=== PATIENT | male | born 1970 | race African-American/Black ===

== ENCOUNTER → 2021-09-20 | Emergency (ER) | payer OTHER ==
[2021-09-20 15:45] VITALS: BP 138/65; PULSE 65; TEMP 97.9; BMI 20.5
== END ==
LOC: JERFT 14:48
DX: K08.89 Other specified disorders of teeth and supporting structures (principal)
CPT/HCPCS: 99281-25

== ENCOUNTER 2023-08-14 12:55 | Emergency (ER) | payer OTHER ==
[2023-08-14 13:22] VITALS: BP 104/73; PULSE 68; RESP 18; TEMP 98; BMI 21.2
[2023-08-14] MEDS ORDERED: AMOX TR/POT CLAV 500MG/125MG TABLETS (FP) ONE (14:51)
[2023-08-14] MEDS: AMOX TR/POT CLAV 500MG/125MG TABLETS (FP) PO ONE (14:52)
== END 2023-08-14 15:03 | disposition home or self-care (01) ==
LOC: JERFT 12:55 → JER 12:55 → JERFT 15:03
DX: K08.89 Other specified disorders of teeth and supporting structures (principal)
CPT/HCPCS: 99283-25